=== PATIENT | female | born 1975 | race Caucasian/White ===

== ENCOUNTER 2020-04-15 22:17 | Emergency (ER) | payer SELFPAY ==
[~2020-04-15] VITALS: Ht 170.2 cm; Wt 65.0 kg
[2020-04-15] MEDS ORDERED: BUPIVACAINE 0.25% ONE (23:08)
[2020-04-15] MEDS ORDERED: LIDOCAINE-MPF 1%, 5ML ONE (23:09)
[2020-04-15] MEDS ORDERED: ONDANSETRON ODT 4 MG ONE (23:14)
[2020-04-15 23:21] VITALS: BP 134/76
--- NOTE | 2020-04-15 23:21 | NUR ---
Magen medicated and discharged from triage.
[2020-04-15] MEDS ORDERED: LIDOCAINE-MPF 1%, 5ML INFIL ONE (23:30)
[2020-04-15] MEDS ORDERED: ONDANSETRON ODT 4 MG PO ONE (23:30)
[2020-04-15] MEDS ORDERED: BUPIVACAINE 0.25% INFIL ONE (23:30)
== END 2020-04-15 23:31 | disposition home or self-care (01) ==
LOC: ED 23:10
DX: K02.9 Dental caries, unspecified (principal)
CPT/HCPCS: 64400; 99284; Q0162